=== PATIENT | female | born 1945 | race Caucasian/White ===

== ENCOUNTER → 2017-07-07 12:18 | Outpatient (CLI) | payer SELFPAY | PROVIDERS: Visit Provider Family Medicine Hospice and Palliative Medicine | DX: N39.0 Urinary tract infection, site not specified (principal) | CPT/HCPCS: 87077; 87086; 87088; 87186 ==

== ENCOUNTER → 2017-10-30 15:12 | Outpatient (CLI) | payer SELFPAY ==
[2017-10-30 15:38] LABS: Color, Urine Yellow (Yellow); Glucose, Dipstick Normal (Normal); Ketone-Dipstick Negative (Negative); Leukocyte Esterase-Dipstick 500 /ul (Negative); Nitrite-Dipstick Negative (Negative); Occult Blood-Urine 150 /ul (Negative); Protein-Dipstick 15 mg/dl (Negative); Urine Bilirubin Dipstick Negative (Negative); Urine Clarity Sl. Cloudy (Clear); Urine Urobilinogen Normal (Normal)
== END ==
PROVIDERS: Visit Provider Family Medicine Hospice and Palliative Medicine
DX: K65.1 Peritoneal abscess (principal)
CPT/HCPCS: 81002; 87077; 87086; 87088; 87186